=== PATIENT | male | born 1995 | race Caucasian/White ===

== ENCOUNTER 2017-04-24 12:05 | Emergency (ER) | payer BC, OTHER ==
[~2017-04-24] VITALS: Ht 180.3 cm; Wt 77.3 kg
[2017-04-24 12:12] VITALS: TEMP 98.5
[2017-04-24] MEDS ORDERED: LEXAPRO 10MG10 MG PO (12:24)
[2017-04-24 12:57] VITALS: BP 153/76
[2017-04-24 13:00] LABS: BASO % 0.4 % (0.0-2.0); EOS % 0.4 % (0-4.0); GRAN # 4.6 (1.4-6.5); GRAN % 66.9 % (42.2-75.2); HEMATOCRIT 44.2 % (42.0-52.0); HEMOGLOBIN 15.1 g/dl (13.5-18.0); LYMPH # 1.7 (1.2-3.4); MEAN CELL VOLUME 90 fl (80.0-100.0); MEAN CORPUSCULAR HEMOGLOBIN 31 pg (27.0-31.0); MEAN CORPUSCULAR HGB CONC 34 g/dl (33.0-37.0); MEAN PLATELET VOLUME 9.7 fl (7.4-10.4); MONO # 0.5 (0.1-0.6); PLATELET COUNT 258 K/mm3 (130-400); RED BLOOD COUNT 4.93 M/mm3 (4.20-5.60); WHITE BLOOD COUNT 6.8 K/mm3 (4.8-10.8)
[2017-04-24 13:06] LABS: ADJUSTED CALCIUM 9.1 mg/dL (8.4-10.2); ALBUMIN 5.2 gm/dL (3.5-5.0); BILIRUBIN,TOTAL 0.8 mg/dL (0.0-1.0); CALCIUM 10.1 mg/dL (8.4-10.2); CREATININE, serum 0.92 mg/dL (0.66-1.25); MAGNESIUM 1.8 mg/dL (1.6-2.3); TOTAL PROTEIN 8.1 gm/dL (6.4-8.2)
[2017-04-24] MEDS ORDERED: PROMETHAZINE12.5 M5 PO (13:43)
[2017-04-24 13:48] VITALS: PULSE 73
== END 2017-04-24 13:49 | disposition home or self-care (01) ==
LOC: COL.ER 12:05
PROVIDERS: Physician Assistant
DX: R55 Syncope and collapse (principal); F63.81 Intermittent explosive disorder

== ENCOUNTER 2019-03-04 15:11 | Emergency (ER) | payer BC ==
[~2019-03-04] VITALS: Ht 180.3 cm; Wt 80.9 kg
[~2019-03-04 15:11] MED LIST: LEXAPRO 10MG10 MG PO; PROMETHAZINE12.5 M5 PO
[2019-03-04 15:34] VITALS: BP 162/87; TEMP 98.7
[2019-03-04] MEDS ORDERED: ERY-TAB250 M1 (15:49)
[2019-03-04 17:05] VITALS: PULSE 91
== END 2019-03-04 17:05 | disposition home or self-care (01) ==
LOC: COL.ER 15:11
DX: S90.122A Contusion of left lesser toe(s) without damage to nail, initial encounter (principal); S00.93XA Contusion of unspecified part of head, initial encounter; W22.8XXA Striking against or struck by other objects, initial encounter; Y92.009 Unspecified place in unspecified non-institutional (private) residence as the place of occurrence of the external cause

== ENCOUNTER → 2019-06-22 | Outpatient (CLI) | payer BC ==
[~2019-06-22] MED LIST changes: +ERY-TAB250 M1
== END ==
LOC: COL.RAD 07:56
DX: R41.3 Other amnesia (principal); R41.0 Disorientation, unspecified
CPT/HCPCS: A9585